=== PATIENT | female | born 1970 | race Caucasian/White ===

== ENCOUNTER → 2016-05-29 | Outpatient (CLI) | payer BC ==
[2016-05-29 18:08] LABS: CH 29.3; CHCM 34.4; HCT 47.2 % (34.0-46.0); MCH 29.1 pg (25.0-35.0); MCV 85.7 fL (80.0-100.0); Mean Platelet Volume 7.2; RDW 13.2 % (11.5-15.5); WBC 9.7 k/uL (3.8-10.6)
[2016-05-29 18:12] LABS: ALT 46 U/L (9-52); AST 37 U/L (14-36); Alkaline Phosphatase 81 U/L (38-126); Anion Gap 12 mmol/L; Blood Urea Nitrogen 9 mg/dL (7-17); C Reactive Protein <5.0 mg/L (<10.0); Calcium 9.5 mg/dL (8.4-10.2); Carbon Dioxide 26 mmol/L (22-30); Chloride 104 mmol/L (98-107); Glucose 89 mg/dL (74-99); Non-African American GFR(MDRD) >60 (>60 ml/min/1.73 sqM); Sodium 142 mmol/L (137-145); Total Bilirubin 0.7 mg/dL (0.2-1.3); Total Protein 7.7 g/dL (6.3-8.2)
[2016-05-29 20:05] LABS: Erythrocyte Sedimentation Rate 2 mm/hr (0-20)
[2016-05-31 13:44] LABS: Gliadin AB IgA, Deaminated 5 UNITS (<20); Gliadin AB IgG, Deaminated 5 UNITS (<20)
== END | disposition home or self-care (01) ==
LOC: LABWHC1 17:06
PROVIDERS: ATTEND Internal Medicine Gastroenterology
DX: K52.9 Noninfective gastroenteritis and colitis, unspecified (principal)
CPT/HCPCS: 36415; 80053; 83516; 85027; 85652; 86140

== ENCOUNTER 2016-06-28 09:45 | Day surgery (SDC) | payer BC ==
[2016-06-23 15:14] VITALS: BMI 27.1
[~2016-06-28 09:45] MED LIST: LACTATED RINGERS 1,000 ML IV SCH; LIDOCAINE 1% 20 ML VIAL (10MG/ML) FOR IV START INTRADERMA PRN
[2016-06-28 10:07] VITALS: TEMP 97
[2016-06-28] MEDS ORDERED: PROPOFOL 10 MG/ML 20 ML VIAL IV ONE (10:50)
--- NOTE | 2016-06-28 11:11 | P.PCN ---
Date of Procedure: 06/28/16 Procedure(s) Performed: BRIEF HISTORY: Patient is a 46-year-old pleasant white female, scheduled for an elective colonoscopy as a part of evaluation of chronic diarrhea and abdominal pain for the last 6 months duration. She has bowel movements between 5-6 a day which are loose to watery in consistency but denies any blood or mucus in the stool. She also completed of chronic lower quadrant abdominal pain. She is hence scheduled for colonoscopy to evaluate further. PROCEDURE PERFORMED: Colonoscopy with biopsy. PREOPERATIVE DIAGNOSIS: Chronic Diarrhea and left lower quadrant abdominal pain. IV sedation per Anesthesia. PROCEDURE: After informed consent was obtained, the patient, was brought into the endoscopy unit. IV conscious sedation was administered by Anesthesia under continuous monitoring. Digital rectal examination was normal. Initially the Olympus CF-160 flexible video colonoscope was then inserted in the rectum, gradually advanced into the cecum without any difficulty. Careful examination was performed as the scope was gradually being withdrawn. Ileocecal valve and the appendiceal orifice were visualized and appeared normal. Terminal ileum was intubated and 20 cm visualized and appeared normal. Prep was excellent. Mucosa of the cecum, appeared normal. Ascending colon there was once limited flat polyp removed by snare polypectomy. The rest of the ascending colon, transverse colon, descending colon, sigmoid colon, and rectum appeared normal. Random biopsies were done from the transverse colon and descending colon to rule out microscopic/collagenous colitis. Retroflexion was performed in the rectum and no lesions were seen. The patient tolerated the procedure well. IMPRESSION: 1 m flat ascending colon polyp serous was snare polypectomy. Rest of the colon appeared normal. RECOMMENDATIONS: Findings of this examination were discussed with the patient as well as a family. She was advised to follow with the biopsy results. If the biopsy shows a tubular adenoma she can have a repeat colonoscopy in 5 years. She will follow up in office in 2-3 weeks..
[2016-06-28 11:14] VITALS: RESP 16
[2016-06-28 11:35] VITALS: BP 110/75; PULSE 70
== END 2016-06-28 12:29 | disposition home or self-care (01) ==
LOC: ORWHC2ENDO 09:45
PROVIDERS: ATTEND Internal Medicine Gastroenterology
DX: K63.5 Polyp of colon (principal); D12.3 Benign neoplasm of transverse colon; D12.4 Benign neoplasm of descending colon; Z79.899 Other long term (current) drug therapy; E07.9 Disorder of thyroid, unspecified
CPT/HCPCS: 81025; 88305; 45380; 45385; J2704; 99153